=== PATIENT | female | born 1990 | race Caucasian/White ===

== ENCOUNTER 2019-11-30 13:38 | Emergency (ER) | payer OTHER ==
--- NOTE | 2019-11-30 14:31 | EDM.PDOC ---
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 This is more noticeable today. Does not go to her back. Positive home preg test a few days ago, LMP about 3 wks ago. No bleeding or spotting. No fever, chills or back discomfort. 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 Denies: Nausea, Vomiting Musculoskeletal: Denies: Back Pain Skin: Reports: No Symptoms Neurological: Reports: No Symptoms ED EXAM - Physical Exam Exam: See Below General Appearance: Alert, No Apparent Distress Head: Atraumatic Neck: Supple Respiratory/Chest: No Respiratory Distress, Lungs Clear, Normal Breath Sounds Cardiovascular: Regular Rate, Rhythm GI/Abdominal Exam: Soft, Tender (mild tenderness R lower abd and R pelvis) Neurological: Alert, Oriented, No Motor/Sensory Deficits Skin Exam: Warm, Dry, Normal Color Course - Vital Signs Last Recorded V/S: Last Vital Signs Temp 97.4 F 11/30/19 13:45 Pulse 93 11/30/19 14:58 Resp 18 11/30/19 14:58 BP 128/79 11/30/19 14:58 Pulse Ox 100 11/30/19 14:58 - Orders/Labs/Meds Labs: Laboratory Tests 11/30/19 11/30/1920 Range/Units 14:20 14:26 14:26 WBC 6.65 (3.98-10.04) K/mm3 RBC 4.88 (3.98-5.22) M/mm3 Hgb 15.0 (11.2-15.7) gm/dl Hct 45.2 H (34.1-44.9) % MCV 92.6 (79.4-94.8) fl MCH 30.7 (25.6-32.2) pg MCHC 33.2 (32.2-35.5) g/dl RDW Std Deviation 41.3 (36.4-46.3) fL Plt Count 227 (182-369) K/mm3 MPV 11.0 (9.4-12.3) fl Neut % (Auto) 56.4 (34.0-71.1) % Lymph % (Auto) 31.0 (19.3-51.7) % [place] % (Auto) 7.1 (4.7-12.5) % Eos % (Auto) 5.0 (0.7-5.8) Baso % (Auto) 0.3 (0.1-1.2) % Neut # (Auto) 3.76 (1.56-6.13) K/mm3 Lymph # (Auto) 2.06 (1.18-3.74) K/mm3 [place] # (Auto) 0.47 H (0.24-0.36) K/mm3 Eos # (Auto) 0.33 (0.04-0.36) K/mm3 Baso # (Auto) 0.02 (0.01-0.08) K/mm3 HCG, Quant 201.0 mIU/mL Urine Color Light yellow (Yellow) Urine Appearance Clear (Clear) Urine pH 7.0 (5.0-8.0) Ur Specific [place] 1.015 (1.005-1.030) Urine Protein Negative (Negative) Urine Glucose (UA) Negative (Negative) Urine Ketones Negative (Negative) Urine Occult Blood Negative (Negative) Urine Nitrite Negative (Negative) Urine Bilirubin Negative (Negative) Urine Urobilinogen 0.2 (0.2-1.0) Ur Leukocyte Esterase Trace H (Negative) Urine RBC Not seen (0-5) /hpf Urine WBC 0-5 (0-5) /hpf Ur Squamous Epith Cells 0-5 (0-5) /hpf Urine Bacteria Moderate H (FEW) /hpf Urine Mucus Not seen (FEW) /hpf - Re-Assessments/Exams Free Text/Narrative Re-Assessment/Exam: 11/30/19 16:43 Hcg 201. US does not show an intrauterine gest sac. There is a R adnexal cyst, there is a small amt of fluid R culdesac. She also evidence for early UTI. This has all be discussed with patient. She needs to follow up clinic in about 4.5 days. Return precautions given. Discharge instr. as documented. Departure - Departure Time of Disposition: 16:37 Disposition: Home, Self-Care 01 Condition: Fair Clinical Impression: UTI (urinary tract infection), First trimester , Pelvic pain - Discharge Information Prescriptions: cephALEXin [Cephalexin] 500 mg PO TID #20 capsule Instructions: First Trimester of , [id number], Urinary Tract Infection, Adult, [id number] Referrals: Martha Abbasi MD [Primary Care Provider] - Forms: ED Department Discharge Additional Instructions: Your HCG level was 201 today, compatable with very early 1-2 week . The US shows some fluid on the right, a small cyst on the right, no intrauterine at this time visible but at 1.2 weeks not unexpected. UA does show a mild UTI. prescription for cephalexin 500 mg three times daily has been sent to [facility], [facility]. Drink plenty of water to maintain hydration. Rest. Follow up with Dr Manrique in 4 to 5 days for recheck if possible, call for appt. Monday AM if possible or otherwise Monday AM. Return to ED as needed. Sepsis Event Note (ED) - Evaluation Sepsis Screening Result: No Definite Risk
--- NOTE | 2019-12-02 11:31 | US ---
First trimester obstetrical ultrasound: Multiple real-time images were obtained transvaginally. Comparison: No previous study for current is available. Uterus is retroverted. No intrauterine gestational sac is seen. Endometrial thickness measures 1.3 cm. Maternal ovaries appear within normal limits. No adnexal abnormalities are seen. Small amount of free fluid noted within the cul-de-sac most likely physiologic. Impression: 1. No intrauterine gestational sac. If patient has a positive test, findings could represent too early to visualize, miscarriage as well as less likely nonvisualized ectopic . Diagnostic code #3 This report was dictated in MDT I agree with preliminary report from lovely, finalized on 11/30/19, 5:08 PM Central Daylight Time
== END 2019-11-30 16:53 | disposition home or self-care (01) ==
LOC: JD.ED 13:38
DX: O23.41 Unspecified infection of urinary tract in pregnancy, first trimester (principal)
CPT/HCPCS: 36415; 76817; 76817-26; 81001; 84702; 85025; 87086; 99282; 99284-25

== ENCOUNTER 2020-08-03 07:03 | Inpatient (IN) | payer OTHER ==
[~2020-08-03 07:03] MED LIST: Bupivacaine 0.25% 10 ML SDV ONE
[2020-08-03] MEDS ORDERED: Ondansetron 4 MG/2 ML SDV IVPUSH PRN ×2 (07:14→09:00)
[2020-08-03] MEDS ORDERED: Nalbuphine 10 MG/1 ML Vial IVPUSH PRN (07:14)
[2020-08-03] MEDS ORDERED: Sodium Chloride 0.9% 10 ML Syringe FLUSH PRN (07:14)
[2020-08-03] MEDS ORDERED: Oxytocin/Lactated Ringers 10 UNIT/1,000 ML BAG IV SCH ×2 (07:15)
--- NOTE | 2020-08-03 07:21 | PCM.LDHP ---
L&D History of Present Illness - General Date of Service: 08/03/20 Admit Problem/Dx: Patient Status Order with Admit Dx/Problem 08/03/20 07:15 Patient Status [ADT] Routine Admission Diagnosis/Problem Admission Diagnosis/Problem Normal in third trimester Source of Information: Patient History Limitations: Reports: No Limitations - History of Present Illness Introduction:: Patient is a 30 y/o at 39 1/7 wks who presents for elective IOL. Doing well today. 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): - Past Surgical History HEENT Surgical History: Reports: Oral Surgery (tooth extractions) GI Surgical History: Reports: Hernia, Inguinal Social & Family History - Tobacco Use Tobacco Use Status *Q: Never Tobacco User - Caffeine Use Caffeine Use: Reports: None - Alcohol Use Alcohol Use History: No - Recreational Drug Use Recreational Drug Use: No H&P Review of Systems - Review of Systems: Review Of Systems: See Below General: Reports: No Symptoms Pulmonary: Reports: No Symptoms Cardiovascular: Reports: No Symptoms Gastrointestinal: Reports: No Symptoms Genitourinary: Reports: No Symptoms Musculoskeletal: Reports: No Symptoms Psychiatric: Reports: No Symptoms Neurological: Reports: No Symptoms L&D Exam - Exam Exam: See Below - OB Specific Contraction Intensity: Irritability Movement: Active Heart Tones: Present Heart Tones per Min: 135 Heart Rate (FHR) Variability: Moderate (6-25 bmp) Presentation: Vertex - Byers Score Byers Score Cervix Position: Posterior Byers Score Consistency: Soft Byers Score Effacement: 31-50% Byers Score Dilation: 1-2 cm Byers Score Infant's Station: -2 Byers Score Total: 5 - Exam General: Alert, Oriented, Cooperative Lungs: Clear to Auscultation, Normal Respiratory Effort Cardiovascular: Regular Rate, Regular Rhythm GI/Abdominal Exam: Soft, Non-Tender Genitourinary: Normal external exam Extremities: Normal Inspection Skin: Warm, Dry, Intact - Patient Data Result Diagrams: 08/03/20 07:38 - Problem List (1) 39 weeks gestation of SNOMED Code(s): 12145492 ICD Code: Z3A.39 - 39 WEEKS GESTATION OF Status: Acute Current Visit: Yes Problem List Initiated/Reviewed/Updated: Yes Orders Last 24hrs: Active Orders 24 hr Category Date Time Status Patient Status [ADT] Routine ADT 08/03/20 07:15 Ordered Communication Order [RC] ASDIRECTED Care 08/03/20 07:15 Ordered Communication Order [RC] ASDIRECTED Care 08/03/20 07:15 Ordered Communication Order [RC] ASDIRECTED Care 08/03/20 07:15 Ordered Heart Tones [RC] ASDIRECTED Care 08/03/20 07:17 Ordered Monitoring [RC] INTERMITTENT Care 08/03/20 07:15 Ordered Non Stress Test [RC] PER UNIT ROUTINE Care 08/03/20 07:15 Ordered Notify Provider [RC] ASDIRECTED Care 08/03/20 07:15 Ordered Notify Provider [RC] PRN Care 08/03/20 07:15 Ordered Peripheral IV Care [RC] . DIRECTED Care 08/03/20 07:17 Ordered Up ad Corie [RC] ASDIRECTED Care 08/03/20 07:17 Ordered Vaginal Exam [RC] ASDIRECTED Care 08/03/20 07:15 Ordered Vital Signs [RC] ASDIRECTED Care 08/03/20 07:15 Ordered Regular Diet [DIET] Diet 08/03/20 Breakfast Ordered CBC W/O DIFF,HEMOGRAM [HEME] Routine Lab 08/03/20 07:14 Ordered CORONAVIRUS COVID-19 ARACELI [MOLEC] Stat Lab 08/03/20 07:19 Ordered HEP C VIRUS AB [REF] Routine Lab 08/03/20 07:14 Ordered RAPID PLASMA REAGIN,RPR [CHEM] Routine Lab 08/03/20 07:15 Ordered TYPE AND SCREEN [BBK] Routine Lab 08/03/20 07:14 Ordered Lactated Ringers [Ringers, Lactated] 1,000 ml Med 08/03/20 07:15 Ordered IV ASDIRECTED Nalbuphine [Nubain] Med 08/03/20 07:14 Ordered 10 mg IVPUSH Q2H PRN Ondansetron [Zofran] Med 08/03/20 07:14 Ordered 4 mg IVPUSH Q4H PRN Oxytocin/Lactated Ringers [Pitocin in LR 10 Units/1,000 Med 08/03/20 07:15 Ordered ML] 10 unit in 1,000 ml IV .CONTINUOUS Oxytocin/Lactated Ringers [Pitocin in LR 10 Units/1,000 Med 08/03/20 07:15 Ordered ML] 10 unit in 1,000 ml IV TITRATE Sodium Chloride 0.9% [Saline Flush] Med 08/03/20 07:14 Ordered 10 ml FLUSH ASDIRECTED PRN Electronic Heart Tones Ext w TOCO [WOMSER] Oth 08/03/20 07:15 Ordered Routine Electronic Heart Tones Internal [WOMSER] Per Unit Ot 08/03/20 07:15 Ordered Routine Peripheral IV Insertion Adult [OM.PC] Routine Ot 08/03/20 07:15 Ordered Resuscitation Status Routine Resus Stat 08/03/20 07:14 Ordered Assessment/Plan Comment:: * Labs ordered * GBS negative * Pitocin and AROM for IOL * Pain management per patient preference * Anticipate
[2020-08-03] MEDS: Lactated Ringers 1,000 ML IV SCH ×3 (08:24→14:44)
[2020-08-03] MEDS ORDERED: fentaNYL 100 MCG/2 ML SDV EPIDUR PRN (09:00)
[2020-08-03] MEDS ORDERED: Bupivacaine/fentaNYL/NS 100 ML Bag EPIDUR SCH (09:00)
[2020-08-03] MEDS ORDERED: ePHEDrine 50 MG/ML SDV IVPUSH PRN (09:00)
--- NOTE | 2020-08-03 10:24 | PCM.PREANE ---
Preanesthetic Assessment - Procedure Proposed Procedure: Epidural - Anesthesia/Transfusion/Family Hx Anesthesia History: Prior Anesthesia Without Reaction Family History of Anesthesia Reaction: No Transfusion History: No Prior Transfusion(s) Intubation History: Unknown - Review of Systems General: No Symptoms Pulmonary: No Symptoms Cardiovascular: No Symptoms Gastrointestinal: No Symptoms Neurological: No Symptoms, Headache (migraines) Other: Reports: Depression, Anxiety - Physical Assessment NPO Status Date: 08/03/20 NPO Status Time: 12:30 Vital Signs: Last Vital Signs Temp 36.6 C 08/03/20 08:20 Pulse 98 08/03/20 08:20 Resp 18 08/03/20 08:20 BP 107/66 08/03/20 08:20 Pulse Ox 96 08/03/20 08:20 Height: 1.6 m Weight: 99.79 kg ASA Class: 2 Mental Status: Alert & Oriented x3 Airway Class: Mallampati = 2 Dentition: Reports: Normal Dentition, Caries Thyro-Mental Finger Breadths: 3 Mouth Opening Finger Breadths: 3 ROM/Head Extension: Full Lungs: Clear to Auscultation, Normal Respiratory Effort Cardiovascular: Regular Rate, Regular Rhythm, No Murmurs - Lab Values: Laboratory Last Values WBC 9.00 K/mm3 (3.98-10.04) 08/03/20 07:38 RBC 3.87 M/mm3 (3.98-5.22) L 08/03/20 07:38 Hgb 12.8 gm/dl (11.2-15.7) D 08/03/20 07:38 Hct 38.3 % (34.1-44.9) 08/03/20 07:38 MCV 99.0 fl (79.4-94.8) H D 08/03/20 07:38 MCH 33.1 pg (25.6-32.2) H 08/03/20 07:38 MCHC 33.4 g/dl (32.2-35.5) 08/03/20 07:38 RDW Std Deviation 48.0 fL (36.4-46.3) H 08/03/20 07:38 Plt Count 163 K/mm3 (182-369) L 08/03/20 07:38 MPV 10.6 fl (9.4-12.3) 08/03/20 07:38 SARS-CoV-2 RNA (ARACELI) Negative (NEGATIVE) 08/03/20 07:30 Blood Type A POSITIVE 08/03/20 07:38 Gel Antibody Screen Negative 08/03/20 07:38 Above labs reviewed and noted and within acceptable ranges to proceed with epidural if desired. 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: Neurological History: Reports: Migraines Psychiatric History: Reports: Anxiety, Depression - Past Surgical History GI Surgical History: Reports: Hernia, Inguinal - SUBSTANCE USE Tobacco Use Status *Q: Never Tobacco User Second Hand Smoke Exposure: No Recreational Drug Use History: No - HOME MEDS Home Medications: Home Meds cephALEXin [Cephalexin] 500 mg PO TID #20 capsule 11/30/19 [Rx] - CURRENT (IN HOUSE) MEDS Current Meds: Current Medications Ephedrine Sulfate (Ephedrine 50 Mg/Ml Sdv) 5 mg IVPUSH ASDIRECTED PRN PRN Reason: Hypotension Fentanyl (Fentanyl 100 Mcg/2 Ml Sdv) 100 mcg EPIDUR Q3H PRN PRN Reason: Pain Fentanyl/Bupivacaine HCl (Bupivacaine/Fentanyl/Ns 100 Ml Bag) 100 ml EPIDUR ASDIRECTED BRIANNA Oxytocin/Lactated Ringer's (Pitocin In Lr 10 Units/1,000 Ml) 10 unit in 1,000 mls @ 12 mls/hr IV TITRATE BRIANNA; Protocol Last Titration: 08/03/20 09:04 Dose: 4 munits/min, 24 mls/hr Documented by: Oxytocin/Lactated Ringer's (Pitocin In Lr 10 Units/1,000 Ml) 10 unit in 1,000 mls @ 500 mls/hr IV .CONTINUOUS BRIANNA Lactated Ringer's (Ringers, Lactated) 1,000 mls @ 40 mls/hr IV ASDIRECTED BRIANNA Last Admin: 08/03/20 08:24 Dose: 40 mls/hr Documented by: Miscellaneous Medication (Phenylephrine Hcl In 0.9% Nacl 1 Mg/10 Ml Syringe) 0.1 mg IVPUSH Q10M PRN PRN Reason: Hypotension Nalbuphine HCl (Nalbuphine 10 Mg/1 Ml Vial) 10 mg IVPUSH Q2H PRN PRN Reason: Pain Ondansetron HCl (Ondansetron 4 Mg/2 Ml Sdv) 4 mg IVPUSH Q4H PRN PRN Reason: Nausea/Vomiting Ondansetron HCl (Ondansetron 4 Mg/2 Ml Sdv) 4 mg IVPUSH ONETIME PRN PRN Reason: Nausea/Vomiting Sodium Chloride (Sodium Chloride 0.9% 10 Ml Syringe) 10 ml FLUSH ASDIRECTED PRN PRN Reason: Keep Vein Open
--- NOTE | 2020-08-03 17:05 | PCM.DEL ---
L & D Note - General Info Date of Service: 08/03/20 - Delivery Note Labor: Induced by ARM, Induced by Oxytocin Delivery Outcome: Livebirth Infant Delivery Method: Spontaneous Vaginal Delivery-Single Infant Delivery Mode: Spontaneous Presentation: Right Occiput Anterior (MARILEE) Nuchal Cord: None Anesthesia Type: Epidural Amniotic Fluid Description: Clear Episiotomy Type: None Laceration: 2nd Degree, Vaginal Suture type: Vicryl Suture size: 2-0 Placenta: Intact, Spontaneous Cord: 3 Vessels Estimated Blood Loss: 300 Resuscitation Needed: Yes [place]: Bulb Syringe, Stimulated, Warmed, [place] Used Delivery Comments (Free Text/Narrative):: Patient found to be complete and began pushing. With maternal pushing effort head delivered from MARILEE presentation. No nuchal cord present. With gentle downward traction the shoulders and body delivered. Infant placed on maternal abdomen. Cord clamped and cut. Cord blood obtained. Placenta allowed time to separate and expelled intact. Inspection of perineum showed a 2nd degree laceration which was repaired with a 2-0 vicryl in an interrupted fashion. - General Info Date of Service: 08/03/20 - Patient Data Vitals - Most Recent: Last Vital Signs Temp 36.6 C 08/03/20 08:20 Pulse 98 08/03/20 08:20 Resp 18 08/03/20 08:20 BP 107/66 08/03/20 08:20 Pulse Ox 96 08/03/20 08:20 Weight - Most Recent: 99.79 kg I&O - Last 24 Hours: Intake & Output 08/03/20 08/03/20 08/03/20 06:59 14:59 22:59 Intake Total 180 Balance 180 - Problem List & Annotations (1) 39 weeks gestation of SNOMED Code(s): 06064817 Code(s): Z3A.39 - 39 WEEKS GESTATION OF Status: Acute Current Visit: Yes (2) Vaginal delivery SNOMED Code(s): 004265582 Code(s): O80 - ENCOUNTER FOR FULL-TERM UNCOMPLICATED DELIVERY Status: Acute Current Visit: Yes - Problem List Review Problem List Initiated/Reviewed/Updated: Yes - My Orders Last 24 Hours: My Active Orders 08/03/20 Breakfast Regular Diet [DIET] 08/03/20 07:14 Nalbuphine [Nubain] 10 mg IVPUSH Q2H PRN Ondansetron [Zofran] 4 mg IVPUSH Q4H PRN Sodium Chloride 0.9% [Saline Flush] 10 ml FLUSH ASDIRECTED PRN Resuscitation Status Routine 08/03/20 07:15 Patient Status [ADT] Routine Communication Order [RC] ASDIRECTED Communication Order [RC] ASDIRECTED Communication Order [RC] ASDIRECTED Monitoring [RC] INTERMITTENT Non Stress Test [RC] PER UNIT ROUTINE Notify Provider [RC] ASDIRECTED Notify Provider [RC] PRN Vaginal Exam [RC] ASDIRECTED Vital Signs [RC] ASDIRECTED Lactated Ringers [Ringers, Lactated] 1,000 ml IV ASDIRECTED Oxytocin/Lactated Ringers [Pitocin in LR 10 Units/1,000 ML] 10 unit in 1,000 ml IV .CONTINUOUS Oxytocin/Lactated Ringers [Pitocin in LR 10 Units/1,000 ML] 10 unit in 1,000 ml IV TITRATE Electronic Heart Tones Ext w TOCO [WOMSER] Routine Electronic Heart Tones Internal [WOMSER] Per Unit Routine Peripheral IV Insertion Adult [OM.PC] Routine 08/03/20 07:17 Heart Tones [RC] ASDIRECTED Peripheral IV Care [RC] . DIRECTED Up ad Corie [RC] ASDIRECTED 08/03/20 07:38 HEP C VIRUS AB [REF] Routine RAPID PLASMA REAGIN,RPR [CHEM] Routine - Assessment Assessment:: PPD#0 - Plan Plan:: * Routine cares * Breast feeding * Discharge home in 1-2 days
[2020-08-03] MEDS ORDERED: Acetaminophen 325 MG Tab PO PRN (19:01)
[2020-08-03] MEDS ORDERED: Docusate Sodium 100 MG Cap PO PRN (19:01)
[2020-08-03] MEDS ORDERED: Witch Hazel Medicated Pads 40/Jar TOP PRN (19:01)
[2020-08-03] MEDS ORDERED: Benzocaine/Menthol 20%-0.5% Spray 56 GM Canister TOP PRN (19:01)
[2020-08-03] MEDS: Ibuprofen 600 MG Tab PO PRN (19:45)
[2020-08-04] MEDS: Ibuprofen 600 MG Tab PO PRN ×2 (03:56→11:37)
--- NOTE | 2020-08-04 05:56 | PCM.PNPP ---
- General Info Date of Service: 08/04/20 Functional Status: Reports: Pain Controlled, Tolerating Diet, Ambulating, Urinating - Review of Systems General: Reports: No Symptoms Pulmonary: Reports: No Symptoms Cardiovascular: Reports: No Symptoms Gastrointestinal: Reports: No Symptoms Genitourinary: Reports: No Symptoms Musculoskeletal: Reports: No Symptoms Neurological: Reports: No Symptoms - Patient Data Vital Signs - Most Recent: Last Vital Signs Temp 35.9 C L 08/04/20 03:51 Pulse 68 08/04/20 03:51 Resp 14 08/04/20 03:51 BP 113/55 L 08/04/20 03:51 Pulse Ox 99 08/04/20 03:51 Weight - Most Recent: 99.79 kg I&O - Last 24 Hours: Intake & Output 08/03/20 08/03/20 08/04/20 14:59 22:59 06:59 Intake Total 180 Output Total 184 Balance -4 Lab Results - Last 24 Hours: Laboratory Results - last 24 hr 08/03/20 08/03/20 08/03/20 Range/Units 07:30 07:38 07:38 WBC 9.00 (3.98-10.04) K/mm3 RBC 3.87 L (3.98-5.22) M/mm3 Hgb 12.8 D (11.2-15.7) gm/dl Hct 38.3 (34.1-44.9) % MCV 99.0 H D (79.4-94.8) fl MCH 33.1 H (25.6-32.2) pg MCHC 33.4 (32.2-35.5) g/dl RDW Std Deviation 48.0 H (36.4-46.3) fL Plt Count 163 L (182-369) K/mm3 MPV 10.6 (9.4-12.3) fl RPR (NONREACTIVE) SARS-CoV-2 RNA (ARACELI) Negative (NEGATIVE) Blood Type A POSITIVE Gel Antibody Screen Negative 08/03/20 Range/Units 07:38 WBC (3.98-10.04) K/mm3 RBC (3.98-5.22) M/mm3 Hgb (11.2-15.7) gm/dl Hct (34.1-44.9) % MCV (79.4-94.8) fl MCH (25.6-32.2) pg MCHC (32.2-35.5) g/dl RDW Std Deviation (36.4-46.3) fL Plt Count (182-369) K/mm3 MPV (9.4-12.3) fl RPR Non-reactive (NONREACTIVE) SARS-CoV-2 RNA (ARACELI) (NEGATIVE) Blood Type Gel Antibody Screen Med Orders - Current: Current Medications Acetaminophen (Acetaminophen 325 Mg Tab) 650 mg PO Q4H PRN PRN Reason: mild pain or fever Benzocaine/Menthol (Benzocaine/Menthol 20%-0.5% [place] 56 Gm Canister) 0 gm TOP ASDIRECTED PRN PRN Reason: Perineal Comfort Measure Last Admin: 08/03/20 19:45 Dose: 1 spray Documented by: Docusate Sodium (Docusate Sodium 100 Mg Cap) 100 mg PO BID PRN PRN Reason: Constipation Last Admin: 08/03/20 19:46 Dose: 100 mg Documented by: Ibuprofen (Ibuprofen 600 Mg Tab) 600 mg PO Q6H PRN PRN Reason: Mild pain or fever Last Admin: 08/04/20 03:56 Dose: 600 mg Documented by: Shazia Menjivar (Shazia Menjivar Medicated Pads 40/Jar) 1 pad TOP ASDIRECTED PRN PRN Reason: Perineal Comfort Measure Last Admin: 08/03/20 19:44 Dose: 1 applic Documented by: Discontinued Medications Ephedrine Sulfate (Ephedrine 50 Mg/Ml Sdv) 5 mg IVPUSH ASDIRECTED PRN PRN Reason: Hypotension Last Admin: 08/03/20 15:37 Dose: 5 mg Documented by: Fentanyl (Fentanyl 100 Mcg/2 Ml Sdv) 100 mcg EPIDUR Q3H PRN PRN Reason: Pain Last Admin: 08/03/20 14:22 Dose: 100 mcg Documented by: Fentanyl/Bupivacaine HCl (Bupivacaine/Fentanyl/Ns 100 Ml Bag) 100 ml EPIDUR ASDIRECTED BRIANNA Last Admin: 08/03/20 14:22 Dose: 100 ml Documented by: Oxytocin/Lactated Ringer's (Pitocin In Lr 10 Units/1,000 Ml) 10 unit in 1,000 mls @ 12 mls/hr IV TITRATE BRIANNA; Protocol Last Titration: 08/03/20 16:09 Dose: 6 munits/min, 36 mls/hr Documented by: Oxytocin/Lactated Ringer's (Pitocin In Lr 10 Units/1,000 Ml) 10 unit in 1,000 mls @ 500 mls/hr IV .CONTINUOUS [facility] Lactated Ringer's (Ringers, Lactated) 1,000 mls @ 40 mls/hr IV ASDIRECTED [facility] Last Admin: 08/03/20 14:44 Dose: 40 mls/hr Documented by: Miscellaneous Medication (Phenylephrine Hcl In 0.9% Nacl 1 Mg/10 Ml Syringe) 0.1 mg IVPUSH Q10M PRN PRN Reason: Hypotension Nalbuphine HCl (Nalbuphine 10 Mg/1 Ml Vial) 10 mg IVPUSH Q2H PRN PRN Reason: Pain Ondansetron HCl (Ondansetron 4 Mg/2 Ml Sdv) 4 mg IVPUSH Q4H PRN PRN Reason: Nausea/Vomiting Ondansetron HCl (Ondansetron 4 Mg/2 Ml Sdv) 4 mg IVPUSH ONETIME PRN PRN Reason: Nausea/Vomiting Sodium Chloride (Sodium Chloride 0.9% 10 Ml Syringe) 10 ml FLUSH ASDIRECTED PRN PRN Reason: Keep Vein Open - Interaction Disposition, : [place] in Room with Family Interaction: Holding Infant Infant Feeding: Breastfed ; Nursed Well Support Person: Significant Other - Recovery Exam Fundal Tone: Firm Fundal Level: 1 Fingerbreadths Below Umbilicus Fundal Placement: Midline Perineum Description: Other (see below) Other Perinuem Description: 2nd degree repaired. Episiotomy/Laceration: Approximated Bladder Status: Voiding Urinary Elimination: Voided - Exam General: Alert, Oriented, Cooperative GI/Abdominal Exam: Soft, Non-Tender - Problem List & Annotations (1) 39 weeks gestation of SNOMED Code(s): 55192805 Code(s): Z3A.39 - 39 WEEKS GESTATION OF Status: Acute Current Visit: Yes (2) Vaginal delivery SNOMED Code(s): 748467254 Code(s): O80 - ENCOUNTER FOR FULL-TERM UNCOMPLICATED DELIVERY Status: Acute Current Visit: Yes - Problem List Review Problem List Initiated/Reviewed/Updated: Yes - My Orders Last 24 Hours: My Active Orders 08/03/20 07:14 Resuscitation Status Routine 08/03/20 07:38 HEP C VIRUS AB [REF] Routine 08/03/20 Dinner Regular Diet [DIET] 08/03/20 19:01 Acetaminophen [TylenoL] 650 mg PO Q4H PRN Benzocaine/Menthol [Dermoplast Pain Relief [place]] See Dose Instructions TOP ASDIRECTED PRN Docusate Sodium [Colace] 100 mg PO BID PRN Ibuprofen [Motrin] 600 mg PO Q6H PRN witch Liam [Tucks] 1 pad TOP ASDIRECTED PRN Heat Therapy [OM.PC] PRN 08/03/20 19:01 Activity as Tolerated [RC] PER UNIT ROUTINE Vital Signs [RC] 09,15,21,03 Assess Lochia [WOMSER] Per Unit Routine Assess Uterine Involution [WOMSER] Per Unit Routine Breast Pump [WOMSER] Per Unit Routine Ice Therapy [OM.PC] Per Unit Routine Perineal Care [OM.PC] Per Unit Routine Peripheral IV Discontinue [OM.PC] Routine Sitz Bath [OM.PC] Per Unit Routine 08/04/20 05:56 Ready for Discharge [RC] PER UNIT ROUTINE 08/04/20 19:01 Heat Therapy [OM.PC] PRN - Assessment Assessment:: PPD#1 - Plan Plan:: * Routine cares * Breast feeding * Discharge home today
--- NOTE | 2020-08-04 05:57 | PCM.DCSUM1 ---
Discharge Summary - Discharge Data Discharge Date: 08/04/20 Discharge Disposition: Home, Self-Care 01 Condition: Good - Referral to Home Health Primary Care Physician: Martha Abbasi MD - Discharge Diagnosis/Problem(s) (1) 39 weeks gestation of SNOMED Code(s): 57404800 ICD Code: Z3A.39 - 39 WEEKS GESTATION OF Status: Acute Current Visit: Yes (2) Vaginal delivery SNOMED Code(s): 192573999 ICD Code: O80 - ENCOUNTER FOR FULL-TERM UNCOMPLICATED DELIVERY Status: Acute Current Visit: Yes - Patient Summary/Data Complications: None Consults: None Recommended Follow-up Testing/Procedures: Follow up in 3 weeks for check Hospital Course: 30 y/o at 39 1/7 wks who presented for elective IOL. Done with pitocin and AROM. Progressed well and underwent an uncomplicated . See delivery note. did well and was discharged home on PPD#1 - Patient Instructions Diet: Regular Diet as Tolerated Activity: As Tolerated Activity, Other: Pelvic rest for 6 weeks Driving: May Drive Today Showering/Bathing: May Shower Showering/Bathing, Other: May Bathe Notify Provider of: Fever, Increased Pain, Swelling and Redness, Drainage, Nausea and/or Vomiting - Discharge Plan *PRESCRIPTION DRUG MONITORING PROGRAM REVIEWED*: No *COPY OF PRESCRIPTION DRUG MONITORING REPORT IN PATIENT [place]: No Home Medications: Home Meds Docusate Sodium [Colace] 100 mg PO BID PRN cap 08/03/20 [Rx] Ibuprofen [Motrin] 600 mg PO Q6H PRN tablet 08/03/20 [Rx] Referrals: Martha Abbasi MD [Primary Care Provider] - (3 weeks for check ) - Discharge Summary/Plan Comment DC Time >30 min.: No - Patient Data Vitals - Most Recent: Last Vital Signs Temp 35.9 C L 08/04/20 03:51 Pulse 68 08/04/20 03:51 Resp 14 08/04/20 03:51 BP 113/55 L 08/04/20 03:51 Pulse Ox 99 08/04/20 03:51 Weight - Most Recent: 99.79 kg I&O - Last 24 hours: Intake & Output 08/03/20 08/03/20 08/04/20 14:59 22:59 06:59 Intake Total 180 Output Total 184 Balance -4 Lab Results - Last 24 hrs: Laboratory Results - last 24 hr 08/03/20 08/03/20 08/03/20 Range/Units 07:30 07:38 07:38 WBC 9.00 (3.98-10.04) K/mm3 RBC 3.87 L (3.98-5.22) M/mm3 Hgb 12.8 D (11.2-15.7) gm/dl Hct 38.3 (34.1-44.9) % MCV 99.0 H D (79.4-94.8) fl MCH 33.1 H (25.6-32.2) pg MCHC 33.4 (32.2-35.5) g/dl RDW Std Deviation 48.0 H (36.4-46.3) fL Plt Count 163 L (182-369) K/mm3 MPV 10.6 (9.4-12.3) fl RPR (NONREACTIVE) SARS-CoV-2 RNA (ARACELI) Negative (NEGATIVE) Blood Type A POSITIVE Gel Antibody Screen Negative 08/03/20 Range/Units 07:38 WBC (3.98-10.04) K/mm3 RBC (3.98-5.22) M/mm3 Hgb (11.2-15.7) gm/dl Hct (34.1-44.9) % MCV (79.4-94.8) fl MCH (25.6-32.2) pg MCHC (32.2-35.5) g/dl RDW Std Deviation (36.4-46.3) fL Plt Count (182-369) K/mm3 MPV (9.4-12.3) fl RPR Non-reactive (NONREACTIVE) SARS-CoV-2 RNA (ARACELI) (NEGATIVE) Blood Type Gel Antibody Screen Med Orders - Current: Current Medications Acetaminophen (Acetaminophen 325 Mg Tab) 650 mg PO Q4H PRN PRN Reason: mild pain or fever Benzocaine/Menthol (Benzocaine/Menthol 20%-0.5% [place] 56 Gm Canister) 0 gm TOP ASDIRECTED PRN PRN Reason: Perineal Comfort Measure Last Admin: 08/03/20 19:45 Dose: 1 spray Documented by: Docusate Sodium (Docusate Sodium 100 Mg Cap) 100 mg PO BID PRN PRN Reason: Constipation Last Admin: 08/03/20 19:46 Dose: 100 mg Documented by: Ibuprofen (Ibuprofen 600 Mg Tab) 600 mg PO Q6H PRN PRN Reason: Mild pain or fever Last Admin: 08/04/20 03:56 Dose: 600 mg Documented by: Shazia Menjivar (Shazia Menjivar Medicated Pads 40/Jar) 1 pad TOP ASDIRECTED PRN PRN Reason: Perineal Comfort Measure Last Admin: 08/03/20 19:44 Dose: 1 applic Documented by: Discontinued Medications Ephedrine Sulfate (Ephedrine 50 Mg/Ml Sdv) 5 mg IVPUSH ASDIRECTED PRN PRN Reason: Hypotension Last Admin: 08/03/20 15:37 Dose: 5 mg Documented by: Fentanyl (Fentanyl 100 Mcg/2 Ml Sdv) 100 mcg EPIDUR Q3H PRN PRN Reason: Pain Last Admin: 08/03/20 14:22 Dose: 100 mcg Documented by: Fentanyl/Bupivacaine HCl (Bupivacaine/Fentanyl/Ns 100 Ml Bag) 100 ml EPIDUR ASDIRECTED BRIANNA Last Admin: 08/03/20 14:22 Dose: 100 ml Documented by: Oxytocin/Lactated Ringer's (Pitocin In Lr 10 Units/1,000 Ml) 10 unit in 1,000 mls @ 12 mls/hr IV TITRATE BRIANNA; Protocol Last Titration: 08/03/20 16:09 Dose: 6 munits/min, 36 mls/hr Documented by: Oxytocin/Lactated Ringer's (Pitocin In Lr 10 Units/1,000 Ml) 10 unit in 1,000 mls @ 500 mls/hr IV .CONTINUOUS BRIANNA Lactated Ringer's (Ringers, Lactated) 1,000 mls @ 40 mls/hr IV ASDIRECTED BRIANNA Last Admin: 08/03/20 14:44 Dose: 40 mls/hr Documented by: Miscellaneous Medication (Phenylephrine Hcl In 0.9% Nacl 1 Mg/10 Ml Syringe) 0.1 mg IVPUSH Q10M PRN PRN Reason: Hypotension Nalbuphine HCl (Nalbuphine 10 Mg/1 Ml Vial) 10 mg IVPUSH Q2H PRN PRN Reason: Pain Ondansetron HCl (Ondansetron 4 Mg/2 Ml Sdv) 4 mg IVPUSH Q4H PRN PRN Reason: Nausea/Vomiting Ondansetron HCl (Ondansetron 4 Mg/2 Ml Sdv) 4 mg IVPUSH ONETIME PRN PRN Reason: Nausea/Vomiting Sodium Chloride (Sodium Chloride 0.9% 10 Ml Syringe) 10 ml FLUSH ASDIRECTED PRN PRN Reason: Keep Vein Open
--- NOTE | 2020-08-04 08:03 | PCM48HPAN ---
Post Anesthesia Note - EVALUATION WITHIN 48HRS OF ANESTHETIC Vital Signs in Normal Range: Yes Patient Participated in Evaluation: Yes Respiratory Function Stable: Yes Airway Patent: Yes Cardiovascular Function Stable: Yes Hydration Status Stable: Yes Pain Control Satisfactory: Yes Nausea and Vomiting Control Satisfactory: Yes Mental Status Recovered: Yes Vital Signs: Last Vital Signs Temp 35.9 C L 08/04/20 03:51 Pulse 68 08/04/20 03:51 Resp 14 08/04/20 03:51 BP 113/55 L 08/04/20 03:51 Pulse Ox 99 08/04/20 03:51 - COMMENTS/OBSERVATIONS Free Text/Narrative:: no anesthesia complications noted
== END 2020-08-04 19:15 | disposition home or self-care (01) | DRG 807 ==
LOC: JD.OB 07:03 → OBSVTOIN 16:45 → JD.OB 16:45
PROVIDERS: ADMIT Obstetrics & Gynecology; ATTEND Obstetrics & Gynecology
PROC: 10E0XZZ Delivery of Products of Conception, External Approach (ICD-10-PCS; principal; 2020-08-03)
PROC: 10907ZC Drainage of Amniotic Fluid, Therapeutic from Products of Conception, Via Natural or Artificial Opening (ICD-10-PCS; 2020-08-03)
PROC: 3E033VJ Introduction of Other Hormone into Peripheral Vein, Percutaneous Approach (ICD-10-PCS; 2020-08-03)
PROC: 3E0R3BZ Introduction of Anesthetic Agent into Spinal Canal, Percutaneous Approach (ICD-10-PCS; 2020-08-03)
PROC: 0KQM0ZZ Repair Perineum Muscle, Open Approach (ICD-10-PCS; 2020-08-03)
DX: O70.1 Second degree perineal laceration during delivery (principal); Z37.0 Single live birth; Z3A.39 39 weeks gestation of pregnancy; Z91.030 Bee allergy status
CPT/HCPCS: 01967; 36415; 51702; 59025; 59409; 85027; 86592; 86803; 86850; 86900; 86901; A9270-GY; J2590; J3010; J3490; J7120; U0002

== ENCOUNTER 2022-02-16 09:05 | Emergency (ER) | payer OTHER ==
[2022-02-16] MEDS ORDERED: Acetaminophen 325 MG Tab PO ONE (09:57)
== END 2022-02-16 11:07 | disposition home or self-care (01) ==
LOC: JD.ED 09:05
DX: S13.4XXA Sprain of ligaments of cervical spine, initial encounter (principal); Z91.030 Bee allergy status; V89.2XXA Person injured in unspecified motor-vehicle accident, traffic, initial encounter
CPT/HCPCS: 72040; 99284; A9270

== ENCOUNTER 2025-01-23 14:22 | Emergency (ER) | payer OTHER ==
[2025-01-23] MEDS ORDERED: Sodium Chloride 0.9% 10 ML Syringe FLUSH PRN (14:57)
[2025-01-23 15:12] LABS: BASOPHILS ABSOLUTE AUTO 0.0 K/mm3 (0.0-0.2); BASOPHILS PERCENT AUTO 0.1 % (0.0-1.0); EOSINOPHILS ABSOLUTE AUTO 0.0 K/mm3 (0.0-0.4); EOSINOPHILS PERCENT AUTO 0.3 % (0.0-6.0); IMMATURE GRAN ABSOLUTE AUTO 0.02 K/mm3 (0.00-0.05); IMMATURE GRAN PERCENT AUTO 0.3 % (0.0-0.4); LYMPHOCYTES ABSOLUTE AUTO 1.0 K/mm3 (1.0-4.8); LYMPHOCYTES PERCENT AUTO 15.4 % (24.0-44.0); MEAN PLATELET VOLUME 11.5 fl (9.4-12.3); MONOCYTES ABSOLUTE AUTO 0.2 K/mm3 (0.0-0.8); MONOCYTES PERCENT AUTO 3.1 % (0.0-8.0); NEUTROPHILS ABSOLUTE AUTO 5.4 K/mm3 (1.8-7.7); NEUTROPHILS PERCENT AUTO 80.8 % (41.0-71.0); NRBC ABSOLUTE 0.00 (0.00-0.02); NRBC PERCENT 0.0 % (0.0-0.2); PLATELET COUNT,PLT 232 K/mm3 (150-400); RED BLOOD CELL COUNT 4.95 M/mm3 (4.10-5.30); WHITE BLOOD CELL COUNT,WBC 6.71 K/mm3 (3.9-11.3)
[2025-01-23] MEDS: Ondansetron 4 MG/2 ML SDV IVPUSH ONE (15:24)
[2025-01-23] MEDS: Ketorolac 30 MG/ML SDV IVPUSH ONE (15:25)
[2025-01-23] MEDS: diphenhydrAMINE 50 MG/ML SDV IVPUSH ONE (15:26)
[2025-01-23 15:35] LABS: A/G RATIO 1.3 (1-2); ALANINE AMINOTRANSFERASE,ALT 19.0 U/L (14-59); ASPARTATE AMNIOTRANSFERASE,AST 13.0 U/L (15-37); BILIRUBIN TOTAL 0.7 mg/dL (0.2-1.0); BLOOD UREA NITROGEN,BUN 17.0 mg/dL (7-18); CARBON DIOXIDE,CO2 27.0 mEq/L (21-32); CHLORIDE,CL 106.0 mEq/L (98-107); CREATININE 0.7 mg/dL (0.55-1.02); EST CRCL DRUG DOSING (CG) 94.56 mL/min; ESTIMATED GFR 117.0 mL/min (>60); GLUCOSE RANDOM 97.0 mg/dL (70-99); POTASSIUM,K 4.6 mEq/L (3.5-5.1); PROTEIN TOTAL,TP 7.2 g/dl (6.4-8.2); SODIUM,NA 141.0 mEq/L (136-145)
[2025-01-23 15:36] LABS: APPEARANCE,URINE SLT CLOUDY (Clear); GLUCOSE,URINE NEGATIVE (Negative); OCCULT BLOOD,URINE TRACE-INTACT (Negative)
[2025-01-23 16:12] LABS: EPITHELIAL CELLS,URINE 0-5 /hpf (0-5)
== END 2025-01-23 17:15 | disposition home or self-care (01) ==
LOC: JD.ED 14:22
DX: G43.909 Migraine, unspecified, not intractable, without status migrainosus (principal); Z91.030 Bee allergy status; Z79.899 Other long term (current) drug therapy
CPT/HCPCS: 36415; 70450; 80053; 81001; 84703; 85025; 86140; 96361; 96374; 96375; 99284; A9270; J1200; J1885; J2405; J2765; J7030